=== PATIENT | female | born 1995 ===

== ENCOUNTER 2016-10-19 11:33 | Emergency (ER) | payer OTHER ==
[2016-10-19 11:34] VITALS: O2SAT 99
[2016-10-19 12:02] VITALS: BP 119/78; PULSE 99; RESP 16; TEMP 98.2
== END 2016-10-19 13:02 | disposition home or self-care (01) | DRG 563 ==
LOC: ED 11:33
DX: S93.421A Sprain of deltoid ligament of right ankle, initial encounter (principal); X50.1XXA Overexertion from prolonged static or awkward postures, initial encounter
CPT/HCPCS: 73610; 99282

== ENCOUNTER 2017-02-07 18:40 | Emergency (ER) | payer OTHER ==
[2017-02-07 19:12] VITALS: O2SAT 98
[2017-02-07] MEDS ORDERED: IBUPROFEN 400 MG TAB PO ONE (19:17)
[2017-02-07] MEDS ORDERED: IBUPROFEN 400 MG TAB ONE (19:18)
[2017-02-07 20:22] VITALS: BP 122/81; PULSE 94; RESP 22; TEMP 103.1
== END 2017-02-07 19:28 | disposition home or self-care (01) | DRG 392 ==
LOC: ED 18:40
DX: K52.9 Noninfective gastroenteritis and colitis, unspecified (principal)
CPT/HCPCS: 99282

== ENCOUNTER 2017-07-27 20:07 | Emergency (ER) | payer OTHER ==
[2017-07-27 20:22] VITALS: BP 114/83; PULSE 116; RESP 20; TEMP 97.6; O2SAT 97
[2017-07-27] MEDS ORDERED: ONDANSETRON 4 MG ODT BU ONE (20:59)
[2017-07-27] MEDS ORDERED: ONDANSETRON 4 MG ODT ONE (21:06)
== END 2017-07-27 21:15 | disposition home or self-care (01) | DRG 392 ==
LOC: ED 20:07
DX: K52.9 Noninfective gastroenteritis and colitis, unspecified (principal)
CPT/HCPCS: 99282; A9270-GY